=== PATIENT | female | born 1955 | race Caucasian/White ===

== ENCOUNTER 2025-01-31 10:24 | Day surgery (SDC) | payer MEDICARE, BC ==
[~2025-01-31] VITALS: Ht 166.4 cm; Wt 61.7 kg
[~2025-01-31 10:24] MED LIST: CETI10CH PO; LINZ290C PO; LYRI75CA PO; MYRB50TA PO; PARO37.55 PO; SYNT125T PO; TRAZ-186 PO; VALA1TAB5 PO; VITA100093 PO; VITATAB73 PO
[2025-01-31] MEDS ORDERED: LIDOCAINE 2% 100 MG/5 ML SDV (FOR ANES.) As Ordered ONE (11:48)
[2025-01-31 12:30] VITALS: BP 130/74; O2SAT 100
== END 2025-01-31 12:50 | disposition home or self-care (01) ==
LOC: M OPP 10:24
PROVIDERS: ATTEND Internal Medicine Gastroenterology
DX: K57.30 Diverticulosis of large intestine without perforation or abscess without bleeding (principal); K64.0 First degree hemorrhoids; Z86.0100 Personal history of colon polyps, unspecified; Z88.5 Allergy status to narcotic agent; Z79.899 Other long term (current) drug therapy